=== PATIENT | female | born 1940 | race Caucasian/White ===

== ENCOUNTER 2022-09-23 21:15 | Inpatient (IN) ==
[2022-09-23] MEDS ORDERED: ONDANSETRON INJ 2 MG/ML 2 ML VIAL IV STA (23:05)
--- NOTE | 2022-09-23 23:24 | History & Physical Report ---
Date of Service September 23, 2022 Assessment & Plan (1) GI bleed: Plan: 82yo Female with PMH HTN HLD afib s/p ablation DM2 here for SOB GI bleed. GI bleed -direct admit from [facility] -received 1U blood at [place] -admit to PCU -consult placed to GI -ordered CBC CMP INR Mag -ordered type and screen, obtained blood transfution consent -ordered 2 large bore IVs -NPO -ordered protonix IV 40mg daily -consider CT A/P HTN, HLD -continue losartan, simvastatin, metoprolol -hold ASA at this time DM2 -hold home metformin -given low dose home medication, hold off insulin for now FENa: NPO Code Status: DNR intubate DVT PPX: SCDs PT/OT: ordered Dispo: PCU Edwina Tillman D.O. PGY 3, FCM (2) Anemia: (3) HTN (hypertension): (4) HLD (hyperlipidemia): (5) DM2 (diabetes mellitus, type 2): (6) S/P ablation of atrial fibrillation: Admission and Anticipated Discharge Date Admission Date: September 23, 2022 History of Present Illness Chief Complaint: GI bleed Primary Care Provider: Rina Garcia 82yo Female with PMH HTN HLD afib s/p ablation DM2 here for SOB GI bleed. Patient states on thursday she discovered bleeding bright red blood per recturm, thursday noticed SOB, both the bleeding and SOB continued to worsen over the next few days. Today patient was taking out her trash walking back home developed SOB 'felt like she couldn't breath', states she had to walk over and sit in her car for 15min, after which she recovered and went inside her house, called her control officer manager who advised her to go to the ED. She describes a slight cough and tenderness in her lower abdomen, but denies nausea vomitting or fever. Patient denies any bloody emesis. Patient went to [facility], was found to have a hbg around 7 was transfused 1U blood, flown over to [facility] for direct admission. In the room patient AAOx3, breathing well on 2L NC. Had some nausea and vomitting in the room that improved with zofran. Patient agreeable to blood consent form if needed. Patient is a former nurse. States she had an echo scheduled in the next few days. Patient manages her own medications. She denies any blood thinners, does take aspirin 81mg daily. She has a history of cholecystectomy and hysterectomy. She follows regularly with cardiology. Patient was taking aleve 220mg 1-2 tabs per night for pain with spinal stenosis, stopped taking night. She denies history of irregular colonoscopies, stopped getting colonoscopies in her 70's. Patient denies family history of GI concerns, however there is a history of muscular dystrophy in her son and daughter, both whom have passed, and her living daughter is positive for the gene. Patient believes it was inherited through their father. Discussed code status with patient. Patient states if her heart were to stop let her go peacefully. Patient agreeable to intubation if needed. Allergies Allergy/AdvReac Type Severity Reaction Status Date / Time Iodinated Contrast Media Allergy Hives Verified 09/23/22 22:50 codeine AdvReac Vomiting Verified 09/23/22 23:30 meperidine AdvReac Vomiting Verified 09/23/22 22:50 oxycodone AdvReac Vomiting Verified 09/23/22 22:50 Home Medications Medication Instructions Recorded Confirmed Type aspirin 81 mg capsule 81 mg QAM 09/23/22 09/23/22 History losartan 50 mg tablet 50 mg PO DAILY 09/23/22 09/23/22 History metformin 500 mg tablet 500 mg BID 09/23/22 09/23/22 History metoprolol succinate 50 mg 50 mg PO DAILY 09/23/22 09/23/22 History tablet,extended release 24 hr simvastatin 20 mg tablet 20 mg PO DAILY 09/23/22 09/23/22 History vitamin A-vitamin C-vit E-min 1 tab PO DAILY 09/23/22 09/23/22 History tablet Past Med/Surg History Medical History (Updated 09/24/22 @ 07:46 by Priyanka Cummins DO) Atrial fibrillation DM2 (diabetes mellitus, type 2) HLD (hyperlipidemia) HTN (hypertension) Surgical History (Updated 09/24/22 @ 07:46 by Priyanka Cummins DO) History of cholecystectomy History of hysterectomy Social History Smoking Status: Never smoker Hx Alcohol Use: No Hx Substance Use: No Preferred Language: Czech Communication Ability: Effective Hand Thermal Cutter Required: No Beliefs That Will Affect Care: None Current Living Situation: Alone Current Living Situation Comment: Home alone - Will be moving in with daughter Other Information That Helps Us Care for You: No Feels Safe at Home: Yes Safety Concerns: Feels Safe At This Time Assistive Devices: Hearing Aid - Bilateral Review of Systems Review of Systems: All systems reviewed & are unremarkable except as noted in HPI & below Physical Exam Constitutional: well developed, well nourished, cooperative and comfortable Eyes: PERRL, conjunctivae normal, anicteric sclerae ENMT: external ear and nose normal, oropharynx normal Neck: trachea midline, no thyromegaly Respiratory: normal respiratory effort, lungs clear to auscultation Cardiovascular: Rate/Rhythm: regular rate and regular rhythm Gastrointestinal (Abdomen): Inspection/Auscultation: abdomen normal to inspection Percussion/Palpation: + abdomen tender (mild, diffuse) and abdomen soft Skin: no rashes, warm and dry Results & Data Results & Data Vital Signs (Past 12 Hours) Vital Signs Temp Resp BP Pulse Ox O2 Del Method O2 Flow Rate 09/23/22 23:17 36.6 C 18 179/80 H 95 Nasal Cannula 2 Laboratory Results Laboratory Results WBC 9.78 K/ul (4.8-10.8) 09/24/22 06:53 RBC 2.76 M/uL (4.20-5.40) L 09/24/22 06:53 Hgb 8.4 g/dl (12.0-16.0) L 09/24/22 06:53 Hct 24.6 % (37.0-47.0) L 09/24/22 06:53 MCV 89.1 fL (80.0-100.0) 09/24/22 06:53 MCH 30.4 pg (25.0-34.0) 09/24/22 06:53 MCHC 34.1 g/dL (32.0-36.0) 09/24/22 06:53 RDW Std Deviation 46.7 fL (36.4-46.3) H 09/24/22 06:53 RDW Coeff of Trino 14.6 % (11.5-14.5) H 09/24/22 06:53 Plt Count 240 K/uL (130-400) 09/24/22 06:53 MPV 9.9 fL (9.4-12.4) 09/24/22 06:53 Immature Gran % (Auto) 0.5 % 09/23/22 23:54 Neut % (Auto) 74.2 % 09/23/22 23:54 Lymph % (Auto) 18.4 % 09/23/22 23:54 [place] % (Auto) 5.6 % 09/23/22 23:54 Eos % (Auto) 1.0 % 09/23/22 23:54 Baso % (Auto) 0.3 % 09/23/22 23:54 Neut # (Auto) 7.77 K/uL (1.40-6.50) H 09/23/22 23:54 Lymph # (Auto) 1.93 K/uL (1.2-3.4) 09/23/22 23:54 [place] # (Auto) 0.59 K/uL (0.11-0.59) 09/23/22 23:54 Eos # (Auto) 0.11 K/uL (0-0.50) 09/23/22 23:54 Baso # (Auto) 0.03 K/uL (0-0.2) 09/23/22 23:54 Immature Gran # (Auto) 0.05 K/uL (0.01-0.20) 09/23/22 23:54 PT 10.6 Seconds (9.0-12.0) 09/23/22 23:54 INR 1.0 (0.9-1.1) 09/23/22 23:54 Sodium 139 mmol/L (136-145) 09/23/22 23:54 Potassium 3.6 mmol/L (3.5-5.1) 09/23/22 23:54 Chloride 107 mmol/L (98-107) 09/23/22 23:54 Carbon Dioxide 22 mmol/L (21-32) 09/23/22 23:54 Anion Gap 10 (3-11) 09/23/22 23:54 BUN 20 mg/dl (6-23) 09/23/22 23:54 Creatinine 0.93 mg/dl (0.6-1.2) 09/23/22 23:54 Est Cr Clr Drug Dosing 41.1 ml/min 09/23/22 23:54 Est GFR ( Amer) 65.9 ml/min 09/23/22 23:54 Est GFR (Non-Af Amer) 56.8 ml/min 09/23/22 23:54 BUN/Creatinine Ratio 21.5 (10-20) H 09/23/22 23:54 Glucose 125 mg/dl (70-99(Fasting)) H 09/23/22 23:54 Calcium 8.9 mg/dl (8.6-10.3) 09/23/22 23:54 Magnesium 1.7 mg/dl (1.7-2.4) 09/23/22 23:54 Total Bilirubin 1.8 mg/dl (0.2-1.0) H 09/23/22 23:54 AST 12 U/L (13-39) L 09/23/22 23:54 ALT 8 U/L (7-52) 09/23/22 23:54 Alkaline Phosphatase 48 U/L (34-104) 09/23/22 23:54 Total Protein 6.4 gm/dl (6.0-8.3) 09/23/22 23:54 Albumin 3.8 gm/dl (3.4-5.0) 09/23/22 23:54 Globulin 2.6 gm/dl (2.5-4.0) 09/23/22 23:54 Albumin/Globulin Ratio 1.5 (0.9-2) 09/23/22 23:54 Blood Type O Positive 09/23/22 23:54 Antibody Screen NEGATIVE 09/23/22 23:54 Supervising Physician Co-Signing Physician Notes Patient seen and examined in room 242-2. Chart reviewed, case discussed with Dr. Tillman at the time of admission and I agree with the assessment and plan as above Resident Activity Tracking Resident Involvement: Resident Care Provided Care Provided: Adult Hospital Medicine
[2022-09-24 00:13] LABS: Basophils # (auto) 0.03 K/uL (0-0.2); Basophils % (auto) 0.3 %; Eosinophils # (auto) 0.11 K/uL (0-0.50); Hematocrit (blood only) 26.9 % (37.0-47.0); Hemoglobin 9.2 g/dl (12.0-16.0); Immature Granulocytes # (auto) 0.05 K/uL (0.01-0.20); Immature Granulocytes % (auto) 0.5 %; Lymphocytes # (auto) 1.93 K/uL (1.2-3.4); Lymphocytes % (auto) 18.4 %; Mean Corpuscular Hemoglobin 30.6 pg (25.0-34.0); Mean Corpuscular Hgb Conc 34.2 g/dL (32.0-36.0); Mean Corpuscular Volume 89.4 fL (80.0-100.0); Mean Platelet Volume 9.4 fL (9.4-12.4); Monocytes # (auto) 0.59 K/uL (0.11-0.59); Monocytes % (auto) 5.6 %; Neutrophils # (auto) 7.77 K/uL (1.40-6.50); Neutrophils % (auto) 74.2 %; Platelet Count 243 K/uL (130-400); RDW Coefficient of Variation 14.2 % (11.5-14.5); RDW Standard Deviation 46.4 fL (36.4-46.3); Red Blood Count 3.01 M/uL (4.20-5.40); White Blood Count 10.48 K/ul (4.8-10.8)
[2022-09-24] MEDS ORDERED: SODIUM CHLORIDE 0.9% 1000ML 1,000 ML IV SCH (00:15)
[2022-09-24 00:27] LABS: Albumin Globulin Ratio 1.5 (0.9-2); Albumin Level 3.8 gm/dl (3.4-5.0); BUN Creatinine Ratio 21.5 (10-20); Bilirubin,Total 1.8 mg/dl (0.2-1.0); Calcium 8.9 mg/dl (8.6-10.3); Creatinine Clr Calc Pharmacy 41.1 ml/min; Est GFR (African American) 65.9 ml/min; Est GFR (Non-African American) 56.8 ml/min; Globulin 2.6 gm/dl (2.5-4.0); Magnesium 1.7 mg/dl (1.7-2.4); Potassium 3.6 mmol/L (3.5-5.1); Total Protein 6.4 gm/dl (6.0-8.3)
[2022-09-24 00:41] LABS: Prothrombin Time 10.6 Seconds (9.0-12.0)
[2022-09-24 07:39] LABS: Hematocrit (blood only) 24.6 % (37.0-47.0); Hemoglobin 8.4 g/dl (12.0-16.0); Mean Corpuscular Hemoglobin 30.4 pg (25.0-34.0); Mean Corpuscular Hgb Conc 34.1 g/dL (32.0-36.0); Mean Corpuscular Volume 89.1 fL (80.0-100.0); Mean Platelet Volume 9.9 fL (9.4-12.4); Platelet Count 240 K/uL (130-400); RDW Coefficient of Variation 14.6 % (11.5-14.5); RDW Standard Deviation 46.7 fL (36.4-46.3); Red Blood Count 2.76 M/uL (4.20-5.40); White Blood Count 9.78 K/ul (4.8-10.8)
--- NOTE | 2022-09-24 07:48 | Billing Data ---
Date of Service September 23, 2022 Coding Level of Care Code 37137 INT INP/OBS CARE
[2022-09-24 07:57] LABS: BUN Creatinine Ratio 19.1 (10-20); Creatinine Clr Calc Pharmacy 40.5 ml/min; Est GFR (Non-African American) 56.1 ml/min; Potassium 4.3 mmol/L (3.5-5.1)
--- NOTE | 2022-09-24 09:27 | Hospitalist Progress Note ---
Date of Service September 24, 2022 Assessment & Plan (1) GI bleed: Plan: Pt is a 82 yo female with PMH of HTN, HLD, afib s/p ablation, and DM2 here for SOB secondary to acute blood loss anemia from GI bleed. GI bleed - upper vs. lower; pt endorses frequent NSAID and aspirin use at home- pt has never had colonoscopy - s/p 1 unit pRBCs from outside hospital; transfusion consent obtained - Hgb stable upon arrival at 9.2; AM repeat 8.4; noon repeat stable at 8.5- will recheck in AM - continue protonix 40 mg BID - per GI; will proceed with colonoscopy and EGD tomorrow HTN, HLD - continue losartan, simvastatin, metoprolol - continue to hold ASA in setting of GI bleed DM2 - hold home metformin - given low dose home medication, hold off insulin for now FEN: clear liquid; prep for colonoscopy tomorrow Code Status: DNR, intubation acceptable DVT ppx: SCDs PT/OT: ordered Dispo: PCU (2) Anemia: (3) HTN (hypertension): (4) HLD (hyperlipidemia): (5) DM2 (diabetes mellitus, type 2): (6) S/P ablation of atrial fibrillation: Admission and Anticipated Discharge Date Admission Date: ATTESTATION I also saw the patient and confirmed ward portions of the history and exam. I agree with the impression and plan in the resident documentation, and as summarized below. Upon our midmorning exam, the patient is resting comfortably in bed. She has no new complaints. Mixed picture, elements of both upper and lower gastrointestinal source. 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 EXAM 130/73, 68, 15, 36.4, 90% room air Alert and oriented Looks membranes pink and moist Heart regular Lungs clear with nonlabored respirations DATA Labs Most recent hemoglobin 8.5 Sodium 140, testing 4.3, BUN 18, creatinine 0.94 IMPRESSION & PLAN Gastrointestinal bleed Acute blood loss anemia Trend hemoglobin Appreciate gastroenterology consultation, plan is for panendoscopy 09/25/2022 Additional per resident documentation Subjective Pt states she started with bloody BM on Thursday 3 per day. She became lightheaded/dizzy and SOB with exertion which prompted her to present to the hospital. She has not had any further BM since coming to [place]. Review of Systems Review of Systems: As per HPI Physical Exam Physical Exam: Constitutional: pale, no acute distress HEENT: normocephalic, no conjunctival injection CV: RRR, no murmur, no LE edema Respiratory: CTA bilaterally. No rhonchi, wheezes, or crackles. No increased work of breathing GI: soft, nondistended, nontender MSK: no gross deformities noted Skin: warm, dry, no rashes Neuro: alert, oriented, no FND noted Psych: mood and affect congruent Results & Data Results & Data Vital Signs (Past 12 Hours) Vital Signs Temp Pulse Pulse Resp BP BP Pulse Ox 09/24/22 07:43 87 09/24/22 07:42 94 H 09/24/22 07:36 37.0 C 69 18 144/70 H 92 09/24/22 04:08 95 H 09/24/22 03:17 36.9 C 103 H 18 136/81 96 09/24/22 00:03 101 H 09/23/22 23:17 36.6 C 18 179/80 H 95 O2 Del Method O2 Flow Rate 09/24/22 07:43 09/24/22 07:42 09/24/22 07:36 Room Air 09/24/22 04:08 09/24/22 03:17 Room Air 09/24/22 00:03 09/23/22 23:17 Nasal Cannula 2 Resident Activity Tracking Resident Involvement: Resident Care Provided Care Provided: Adult Hospital Medicine
--- NOTE | 2022-09-24 10:02 | Gastrointestinal Consultation ---
Date of Consultation September 24, 2022 Assessment & Plan (1) GI bleed: (2) Anemia: Plan She is having dark stools as well as brbpr per rectum with symptomatic anemia over the past week. Discussed case with Dr. Joe who helped advise on plan. - discussed with patient and she is agreeable to having colonoscopy and egd to further evaluate. will plan to prep today and do these tomorrow. - continue to trend hgb/hct and transfuse as needed. - I advised her to avoid nsaid use. Supervising Physician Co-Signing Physician Notes Agree with CHRISTOPHER Wagner as above Abd: Soft, NT, ND, +BS She states she has not have any overt GI bleeding today Proceed with EGD and Colonoscopy tomorrow with Dr. Wang. History of Present Illness Reason for Consultation: GIB Requesting Physician: Edwina Raymond DO Attending Physician: Priyanka Cummins DO History of Present Illness Patient is an 82 year old female with complaints of 6 days of brbpr, shortness of breath x 5 days and notes progressive symptoms since symptoms began. Due to her symptoms she was seen at [facility] and found to have a hgb of 7 so she was transfused with 1 unit of PRBC and transferred to [facility]. On arrival here, hgb was 9.2 on 09/23. She admits to regular nsaid use of daily aleve for arthritic issues. Over the past week she has had an increase in bowel movements from her baseline with having 3 bowel movements daily that are loose, dark, and bloody. She tells me she has never had a colonoscopy or egd in the past. no blood thinners. she tells me she has had no further bleeding since admission. no bowel movements since admission. rest of GI ros unremarkable. Allergies Allergy/AdvReac Type Severity Reaction Status Date / Time Iodinated Contrast Media Allergy Hives Verified 09/23/22 22:50 codeine AdvReac Vomiting Verified 09/23/22 23:30 meperidine AdvReac Vomiting Verified 09/23/22 22:50 oxycodone AdvReac Vomiting Verified 09/23/22 22:50 Home Medications Medication Instructions Recorded Confirmed Type aspirin 81 mg capsule 81 mg QAM 09/23/22 09/23/22 History losartan 50 mg tablet 50 mg PO DAILY 09/23/22 09/23/22 History metformin 500 mg tablet 500 mg BID 09/23/22 09/23/22 History metoprolol succinate 50 mg 50 mg PO DAILY 09/23/22 09/23/22 History tablet,extended release 24 hr simvastatin 20 mg tablet 20 mg PO DAILY 09/23/22 09/23/22 History vitamin A-vitamin C-vit E-min 1 tab PO DAILY 09/23/22 09/23/22 History tablet Patient History Medical History (Updated 09/24/22 @ 07:46 by Priyanka Cummins DO) Atrial fibrillation DM2 (diabetes mellitus, type 2) HLD (hyperlipidemia) HTN (hypertension) Surgical History (Updated 09/24/22 @ 07:46 by Priyanka Cummins DO) History of cholecystectomy History of hysterectomy Social History Smoking Status: Never smoker Hx Alcohol Use: No Hx Substance Use: No Preferred Language: Wolof Communication Ability: Effective Packing Machine Tender Required: No Beliefs That Will Affect Care: None Current Living Situation: Alone Current Living Situation Comment: Home alone - Will be moving in with daughter Other Information That Helps Us Care for You: No Feels Safe at Home: Yes Safety Concerns: Feels Safe At This Time Assistive Devices: Cane and Walker Review of Systems Review of Systems: All systems reviewed & are unremarkable except as noted in HPI & below Physical Exam Constitutional: WD/WN, vitals as above Respiratory: normal respiratory effort, lungs clear to auscultation Cardiovascular: RRR, no murmur, no edema Gastrointestinal (Abdomen): normal bowel sounds, soft, nontender, no hepatosplenomegaly Skin: no rashes, warm and dry Psychiatric: Orientation: alert and oriented x 3 Affect: euthymic affect Results & Data Vital Signs (Past 12 Hours) Vital Signs Temp Pulse Pulse Resp BP BP Pulse Ox 09/24/22 07:43 87 09/24/22 07:42 94 H 09/24/22 07:36 98.6 F 69 18 144/70 H 92 09/24/22 04:08 95 H 09/24/22 03:17 98.4 F 103 H 18 136/81 96 09/24/22 00:03 101 H 09/23/22 23:17 97.9 F 18 179/80 H 95 O2 Del Method O2 Flow Rate 09/24/22 07:43 09/24/22 07:42 09/24/22 07:36 Room Air 09/24/22 04:08 09/24/22 03:17 Room Air 09/24/22 00:03 09/23/22 23:17 Nasal Cannula 2 PG Care Time/CCT Total # of Minutes Spent Total Time Spent with Patient: Total time spent is greater than 50% in coordination of care (as documented) at patient's floor/unit and/or counseling patient: Coding Level of Care Code 77508 INT INP/OBS CARE 1/40MIN Diagnoses GI bleed K92.2 Anemia D64.9 Time Spent (min) 42
[2022-09-24] MEDS ORDERED: PANTOprazole 40 MG in SYRINGE 0 ML IV SCH (11:00)
[2022-09-24 12:30] LABS: Hematocrit (blood only) 24.9 % (37.0-47.0); Hemoglobin 8.5 g/dl (12.0-16.0)
[2022-09-24] MEDS: PANTOprazole 40 MG in SYRINGE 0 ML IV SCH ×2 (14:36→20:13)
[2022-09-24] MEDS: LOSARTAN POTASSIUM 50 MG TAB PO SCH (15:14)
[2022-09-24] MEDS: SIMVASTATIN 20 MG TAB PO SCH (15:15)
[2022-09-24] MEDS: METOPROLOL SUCC 50MG EXT REL TAB PO SCH (15:15)
[2022-09-24] MEDS: LAVAGE SOLUTION 4000ML PO SCH (16:41)
[2022-09-24] MEDS: SULFAMETHOXAZOLE/TRIMETHOPRIM DS 800/160MG TAB PO SCH (20:06)
[2022-09-25] MEDS: LAVAGE SOLUTION 4000ML PO SCH (00:11)
--- NOTE | 2022-09-25 06:44 | Hospitalist Progress Note ---
Date of Service September 25, 2022 Assessment & Plan (1) GI bleed: Plan: Pt is a 82 yo female with PMH of HTN, HLD, afib s/p ablation, and DM2 here for SOB secondary to acute blood loss anemia from GI bleed. GI bleed - upper vs. lower; pt endorses frequent NSAID and aspirin use at home- pt has never had colonoscopy - s/p 1 unit pRBCs from outside hospital; transfusion consent obtained - Hgb stable upon arrival at 9.2; no further bleeding; this AM 7.9- recheck tomorrow AM - EGD showed erosive gastropathy w/o signs of bleeding - colonoscopy revealed large polyp of ascending colon w/o evidence of current bleeding, in addition to small, non-bleeding hemorrhoids - per GI; continue protonix 40 mg daily, outpatient referral to Dr. Bowers for resection of above polyp Skin abscess of left buttock - improving since yesterday, still draining purulent material but decreasing in size - continue bactrim BID - will consider surgical consult for I&D tomorrow if no improvement/worsening HTN, HLD - continue losartan, simvastatin, metoprolol - continue to hold ASA in setting of GI bleed DM2 - hold home metformin - given low dose home medication, hold off insulin for now FEN: carb consistent Code Status: DNR, intubation acceptable DVT ppx: SCDs PT/OT: ordered Dispo: PCU (2) Anemia: (3) HTN (hypertension): (4) HLD (hyperlipidemia): (5) DM2 (diabetes mellitus, type 2): (6) S/P ablation of atrial fibrillation: (7) Abscess: Admission and Anticipated Discharge Date Admission Date: September 23, 2022 Supervising Physician Co-Signing Physician Notes ATTESTATION I also saw the patient and confirmed ward portions of the history and exam. I agree with the impression and plan in the resident documentation, and as summarized below. Upon our afternoon exam, the patient was returned to her bed post EGD and colonoscopy. Her daughter is at bedside. She was eating a sandwich without difficulty. She had no new complaints. EXAM 110/64, 74, 16, 37 C, 97% room air Alert and oriented Looks membranes pink and moist Heart regular Lungs clear with nonlabored respirations DATA Labs Hemoglobin 7.9 Sodium 142, potassium 4.1, BUN 10, creatinine 0.9 Micro Wound culture from the left buttocks shows staph, sensitivities to follow IMPRESSION & PLAN Gastrointestinal bleed Acute blood loss anemia EGD demonstrated normal esophagus, erosive gastropathy with no bleeding or signs of recent bleeding. Colonoscopy revealed 1 large polyp in the ascending colon which was tattooed; none bleeding internal hemorrhoids. Unsure if we have found a cause of her bleeding, although we do not know what her baseline hemoglobin is (slow bleed from polyp + acute hemorrhoidal bleeding). That being said, the patient reports passage of several dark blood clots in addition to bright red blood which would not be entirely consistent with hemorrhoidal bleeding. Continue to monitor hemoglobin We will discuss with gastroenterology timing of polyp resection Continue to hold aspirin/NSAIDs Continue Protonix twice daily Skin abscess, left buttock Improving with Bactrim Reexamine in the morning; will likely need surgical consult/I&D tomorrow if not continuing to improve or if worsens Additional per resident documentation Subjective Pt seen before her colonoscopy/EGD this morning. No further bleeding. She states her bottom (near her abscess) feels better. Review of Systems Review of Systems: As per HPI Physical Exam Physical Exam: Constitutional: well appearing, pale, no acute distress HEENT: normocephalic, no conjunctival injection CV: RRR, no murmur, no LE edema Respiratory: CTA bilaterally. No rhonchi, wheezes, or crackles. No increased work of breathing MSK: no gross deformities noted Skin: warm, dry. ~3cm round erythematous and indurated abscess noted of left buttock. ~0.5 cm open area draining purulent material. Improved from yesterday. Neuro: alert, oriented, no FND noted Psych: mood and affect congruent Results & Data Results & Data Vital Signs (Past 12 Hours) Vital Signs Temp Pulse Pulse Resp BP Pulse Ox O2 Del Method 09/25/22 03:20 36.4 C L 66 18 130/82 95 Room Air 09/24/22 22:31 68 09/24/22 22:54 36.5 C 67 18 147/83 H 96 Room Air 09/24/22 19:29 36.3 C L 68 18 138/84 98 Room Air Resident Activity Tracking Resident Involvement: Resident Care Provided Care Provided: Adult Hospital Medicine
[2022-09-25 07:03] LABS: Hematocrit (blood only) 22.9 % (37.0-47.0); Hemoglobin 7.9 g/dl (12.0-16.0); Mean Corpuscular Hemoglobin 30.5 pg (25.0-34.0); Mean Corpuscular Hgb Conc 34.5 g/dL (32.0-36.0); Mean Corpuscular Volume 88.4 fL (80.0-100.0); Mean Platelet Volume 9.9 fL (9.4-12.4); Platelet Count 248 K/uL (130-400); RDW Standard Deviation 47.9 fL (36.4-46.3); Red Blood Count 2.59 M/uL (4.20-5.40); White Blood Count 7.74 K/ul (4.8-10.8)
[2022-09-25 07:23] LABS: BUN Creatinine Ratio 11.1 (10-20); Creatinine Clr Calc Pharmacy 42.8 ml/min; Est GFR (African American) 68.5 ml/min; Est GFR (Non-African American) 59.1 ml/min; Potassium 4.1 mmol/L (3.5-5.1)
--- NOTE | 2022-09-25 08:12 | Anesthesiology Consultation ---
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 Felipe Wang MD Height/Weight Height: 5 ft 1 in Weight: 71.3 kg Allergies Allergy/AdvReac Type Severity Reaction Status Date / Time Iodinated Contrast Media Allergy Hives Verified 09/23/22 22:50 codeine AdvReac Vomiting Verified 09/23/22 23:30 meperidine AdvReac Vomiting Verified 09/23/22 22:50 oxycodone AdvReac Vomiting Verified 09/23/22 22:50 Medications Home Medications Medication Instructions Recorded Confirmed Last Taken aspirin 81 mg capsule 81 mg QAM 09/23/22 09/23/22 Unknown losartan 50 mg tablet 50 mg PO DAILY 09/23/22 09/23/22 Unknown metformin 500 mg tablet 500 mg BID 09/23/22 09/23/22 Unknown metoprolol succinate 50 mg 50 mg PO DAILY 09/23/22 09/23/22 Unknown tablet,extended release 24 hr simvastatin 20 mg tablet 20 mg PO DAILY 09/23/22 09/23/22 Unknown vitamin A-vitamin C-vit E-min 1 tab PO DAILY 09/23/22 09/23/22 Unknown tablet Active Medications Generic Name Dose Route Start Last Admin Trade Name César PRN Reason Stop Dose Admin Pantoprazole Sodium 40 mg/ 10 mls @ 5 mls/min 09/24/22 12:00 09/24/22 20:13 Syringe IV 10/24/22 11:59 5 mls/min BID SULMA Administration Losartan Potassium 50 mg 09/24/22 09:00 09/24/22 15:14 Losartan Potassium 50 Mg Tab PO 10/24/22 08:59 50 mg DAILY SULMA Administration Metoprolol Succinate 50 mg 09/24/22 09:00 09/24/22 15:15 Metoprolol Succ 50mg Ext Rel Tab PO 10/24/22 08:59 50 mg DAILY SULMA Administration Simvastatin 20 mg 09/24/22 09:00 09/24/22 15:15 Simvastatin 20 Mg Tab PO 10/24/22 08:59 20 mg DAILY SULMA Administration Trimethoprim/Sulfamethoxazole 1 tab 09/24/22 21:00 09/24/22 20:06 Sulfamethoxazole/Trimethoprim Ds 800/160mg Tab PO 10/01/22 20:59 1 tab Q12 SULMA Administration Past Medical History Medical History Atrial fibrillation DM2 (diabetes mellitus, type 2) HLD (hyperlipidemia) HTN (hypertension) Past Surgical History Surgical History History of cholecystectomy History of hysterectomy Social History Smoking Status: Never smoker Hx Alcohol Use: No Hx Substance Use: No Physical Exam Vital Signs Last Vital Signs Temp 97.5 F L 09/25/22 03:20 Pulse 66 09/25/22 03:20 Resp 18 09/25/22 03:20 BP 130/82 09/25/22 03:20 Pulse Ox 95 09/25/22 03:20 O2 Del Method Room Air 09/25/22 03:20 O2 Flow Rate 2 09/23/22 23:17 Testing Laboratory Results 09/25/22 05:33 09/25/22 05:33 PT 10.6 Seconds (9.0-12.0) 09/23/22 23:54 INR 1.0 (0.9-1.1) 09/23/22 23:54 Blood Type O Positive 09/23/22 23:54 Antibody Screen NEGATIVE 09/23/22 23:54
--- NOTE | 2022-09-25 08:39 | History & Physical Bridge Note ---
Date of Service September 25, 2022 History & Physical Bridge Note I have examined the patient, reviewed the History & Physical and in the interval since the performance of the History & Physical I have noted the following changes of clinical significance: no changes noted Proceed with EGD. proceed with colonoscopy. risks/benefits and procedure discussed with patient, who agrees to proceed
[2022-09-25] MEDS: LOSARTAN POTASSIUM 50 MG TAB PO SCH (09:33)
[2022-09-25] MEDS: SULFAMETHOXAZOLE/TRIMETHOPRIM DS 800/160MG TAB PO SCH ×2 (09:34→20:28)
[2022-09-25] MEDS: SIMVASTATIN 20 MG TAB PO SCH (09:34)
[2022-09-25] MEDS: METOPROLOL SUCC 50MG EXT REL TAB PO SCH (09:34)
[2022-09-25] MEDS: PANTOprazole 40 MG in SYRINGE 0 ML IV SCH (09:34)
[2022-09-25] MEDS ORDERED: LIDOCAINE 2% 2 ML VIAL/AMP(20MG/ML) INFIL ONE (11:11)
[2022-09-25] MEDS ORDERED: PROPOFOL IV EMULSION 10 MG/ML 20 ML VIAL IV ONE (11:11)
[2022-09-25] MEDS ORDERED: ONDANSETRON INJ 2 MG/ML 2 ML VIAL ONE (11:12)
[2022-09-25] MEDS ORDERED: ENDOSCOPIC MARKER 5 ML SYR TOP ONE (12:35)
[2022-09-25] MEDS ORDERED: ePHEDrine sulfate 50 MG/ML SYR ONE (12:36)
--- NOTE | 2022-09-25 12:55 | GI REPORT ---
Patient Name: Pat Louise Procedure Date: 09/25/2022 11:18 AM Date of : 1940 Admit Type: Inpatient Age: 82 Gender: Female Attending MD: Tod Wang MD, Procedure: Upper GI endoscopy Providers: Tod Wang MD Referring MD: Priyanka Cummins Do Indications: Recent gastrointestinal bleeding Medicines: Monitored Anesthesia Care Complications: No immediate complications. Estimated blood loss: None. Estimated Blood Loss: Estimated blood loss: none. Procedure: Pre-Anesthesia Assessment: - Prior Anticoagulants: The patient has taken no anticoagulant or antiplatelet agents. - ASA Grade Assessment: III - A patient with severe systemic disease. After obtaining informed consent, the endoscope was passed under direct vision. Throughout the procedure, the patient's blood pressure, pulse, and oxygen saturations were monitored continuously. The Endoscope was introduced through the mouth, and advanced to the second part of duodenum. The upper GI endoscopy was accomplished without difficulty. The patient tolerated the procedure well. Findings: The examined esophagus was normal. Multiple dispersed small erosions with no bleeding and no stigmata of recent bleeding were found in the gastric antrum. Biopsies were taken with a cold forceps for Helicobacter pylori testing. Estimated blood loss: none. The duodenal bulb and second portion of the duodenum were normal. Impression: - Normal esophagus. - Erosive gastropathy with no bleeding and no stigmata of recent bleeding. Biopsied. - Normal duodenal bulb and second portion of the duodenum. Recommendation: - [facility] care. - Advance diet as tolerated today. - Await pathology results. -protonix 40 mg daily Tod Wang MD 09/25/2022 12:55:30 PM This report has been signed electronically. Note Initiated On: 09/25/2022 11:18 AM Number of Addenda: 0 I attest to the content of the Intraoperative Record and orders documented therein, exceptions below {[id number]}
--- NOTE | 2022-09-25 12:58 | GI REPORT ---
Patient Name: Pat Louise Procedure Date: 09/25/2022 11:19 AM Date of : 1940 Admit Type: Inpatient Age: 82 Gender: Female Attending MD: Tod Wang MD, Procedure: Colonoscopy Providers: Tod Wang MD Referring MD: Priyanka Cummins Do Indications: Gastrointestinal bleeding Medicines: Monitored Anesthesia Care Complications: No immediate complications. Estimated blood loss: None. Estimated Blood Loss: Estimated blood loss: none. Procedure: Pre-Anesthesia Assessment: - Prior Anticoagulants: The patient has taken no anticoagulant or antiplatelet agents. - ASA Grade Assessment: III - A patient with severe systemic disease. After I obtained informed consent, the scope was passed under direct vision. Throughout the procedure, the patient's blood pressure, pulse, and oxygen saturations were monitored continuously. The Colonoscope was introduced through the anus and advanced to the cecum, identified by appendiceal orifice and ileocecal valve. The colonoscopy was performed without difficulty. The patient tolerated the procedure well. The quality of the bowel preparation was adequate to identify polyps greater than 5 mm in size. Findings: A large polyp was found in the ascending colon roughly 7 cm distal to the IC valve. The polyp was carpet-like. Area was tattooed with an injection of 5 mL of Lexi ink. Non-bleeding internal hemorrhoids were found. The hemorrhoids were small. no evidence of blood throughout entire exam. Impression: - One large polyp in the ascending colon. Tattooed. - Non-bleeding internal hemorrhoids. - No specimens collected. Recommendation: - [facility] to [facility] for [facility] care. - Advance diet as tolerated today. -refer to Dr. Bowers for advanced resection of ascending colon polyp. Tod Wang MD 09/25/2022 12:58:40 PM This report has been signed electronically. Note Initiated On: 09/25/2022 11:19 AM Number of Addenda: 0 I attest to the content of the Intraoperative Record and orders documented therein, exceptions below {[id number]}
--- NOTE | 2022-09-25 13:06 | Anesthesiology Progress Note ---
Date of Service September 25, 2022 Anesthesia Post Procedure Vital Signs Vital Signs: Temp Pulse Pulse Resp BP Pulse Ox O2 Del Method 09/25/22 12:51 76 14 129/60 99 Oxymask 09/25/22 10:55 97.7 F 68 16 175/85 H 95 Room Air 09/25/22 08:21 98.2 F 73 16 169/67 H 98 Room Air 09/25/22 03:20 97.5 F L 66 18 130/82 95 Room Air 09/24/22 22:31 68 09/24/22 22:54 97.7 F 67 18 147/83 H 96 Room Air 09/24/22 19:29 97.3 F L 68 18 138/84 98 Room Air 09/24/22 14:01 75 09/24/22 16:16 98.1 F 68 20 127/75 94 Room Air O2 Flow Rate 09/25/22 12:51 4 09/25/22 10:55 09/25/22 08:21 09/25/22 03:20 09/24/22 22:31 09/24/22 22:54 09/24/22 19:29 09/24/22 14:01 09/24/22 16:16 Transfer of Care Handoff Completed per policy Notes Mental Status: alert / awake / arousable and participated in evaluation Patient Amnestic to Procedure: Yes Nausea / Vomiting: adequately controlled Pain: adequately controlled Airway Patency, RR, SpO2: stable & adequate BP & HR: stable & adequate Hydration State: stable & adequate Anesthetic Complications: no major complications apparent and Pt Satisfied with anesthetic care
[2022-09-26 07:01] LABS: Hematocrit (blood only) 22.6 % (37.0-47.0); Hemoglobin 7.6 g/dl (12.0-16.0); Mean Corpuscular Hemoglobin 30.5 pg (25.0-34.0); Mean Corpuscular Hgb Conc 33.6 g/dL (32.0-36.0); Mean Corpuscular Volume 90.8 fL (80.0-100.0); Mean Platelet Volume 9.5 fL (9.4-12.4); Platelet Count 240 K/uL (130-400); RDW Coefficient of Variation 14.8 % (11.5-14.5); RDW Standard Deviation 48.7 fL (36.4-46.3); Red Blood Count 2.49 M/uL (4.20-5.40); White Blood Count 11.59 K/ul (4.8-10.8)
[2022-09-26 07:11] LABS: Calcium 8.1 mg/dl (8.6-10.3); Creatinine Clr Calc Pharmacy 32.9 ml/min; Est GFR (African American) 49.4 ml/min; Est GFR (Non-African American) 42.6 ml/min; Potassium 4.5 mmol/L (3.5-5.1)
[2022-09-26] MEDS: SULFAMETHOXAZOLE/TRIMETHOPRIM DS 800/160MG TAB PO SCH (08:39)
[2022-09-26] MEDS: METOPROLOL SUCC 50MG EXT REL TAB PO SCH (08:39)
[2022-09-26] MEDS: SIMVASTATIN 20 MG TAB PO SCH (08:39)
[2022-09-26] MEDS: LOSARTAN POTASSIUM 50 MG TAB PO SCH (08:39)
[2022-09-26] MEDS: PANTOprazole 40 MG in SYRINGE 0 ML IV SCH (08:39)
[2022-09-26] MEDS: cephALEXin 500 MG CAP PO SCH ×3 (12:27→21:10)
--- NOTE | 2022-09-26 13:50 | Hospitalist Progress Note ---
Date of Service September 26, 2022 Assessment & Plan (1) GI bleed: Plan: Pt is a 82 yo female with PMH of HTN, HLD, afib s/p ablation, and DM2 here for SOB secondary to acute blood loss anemia from GI bleed. GI bleed - upper vs. lower; pt endorses frequent NSAID and aspirin use at home- pt has never had colonoscopy - s/p 1 unit pRBCs from outside hospital; transfusion consent obtained - Hgb stable upon arrival at 9.2; no further bleeding; this AM 7.9, recheck 7.5, recheck pending for 8 PM - EGD showed erosive gastropathy w/o signs of bleeding - colonoscopy revealed large polyp of ascending colon w/o evidence of current bleeding, in addition to small, non-bleeding hemorrhoids - per GI; continue protonix 40 mg daily, outpatient referral to Dr. Bowers for resection of above polyp Skin abscess of left buttock - improving since yesterday, still draining purulent material but again decreasing in size - d/c bactrim d/t MSSA on wound culture; start cephalexin 500 mg QID HTN, HLD - continue losartan, simvastatin, metoprolol - continue to hold ASA in setting of GI bleed DM2 - hold home metformin - given low dose home medication, hold off insulin for now FEN: carb consistent Code Status: DNR, intubation acceptable DVT ppx: SCDs PT/OT: ordered Dispo: PCU (2) Anemia: (3) HTN (hypertension): (4) HLD (hyperlipidemia): (5) DM2 (diabetes mellitus, type 2): (6) S/P ablation of atrial fibrillation: (7) Abscess: Admission and Anticipated Discharge Date Admission Date: September 23, 2022 Supervising Physician Co-Signing Physician Notes I personally examined the patient and verified all ward points of history and exam, discussed case, and agree with decision making and plan documented by Dr. Osullivan. Patient's hemoglobin continues to slowly drop, unclear etiology of bleeding, denies dark stools or other areas of bleeding at present. Patient will require advanced resection of ascending colon polyp identified on colonoscopy yesterday, also erosive gastropathy on EGD. Patient had some tenderness in the right lower quadrant on exam today, no rebound, will evaluate with an ultrasound and proceed to CT scan if unrevealing and pain persists. Last hemoglobin 7.5, will recheck this evening and monitor closely. Subjective Pt states she feels well this morning. No further bleeding. Her abscess is less painful. Review of Systems Review of Systems: As per HPI Physical Exam Physical Exam: Constitutional: well appearing, no acute distress HEENT: normocephalic, no conjunctival injection CV: RRR, no murmur, no LE edema Respiratory: CTA bilaterally. No rhonchi, wheezes, or crackles. No increased work of breathing MSK: no gross deformities noted Skin: warm, dry, erythematous/indurated region of left buttock decreased in size from yesterday (~1.5 cm to 2 cm). Still draining bloody/purulent fluid. Neuro: alert, oriented, no FND noted Psych: mood and affect congruent Results & Data Results & Data Vital Signs (Past 12 Hours) Vital Signs Temp Pulse Resp BP Pulse Ox O2 Del Method 09/26/22 11:52 36.9 C 56 L 18 146/81 H 95 Room Air 09/26/22 08:00 Room Air 09/26/22 07:43 36.8 C 91 H 18 119/73 96 Room Air 09/26/22 03:45 37.1 C 90 17 130/74 91 Room Air Resident Activity Tracking Resident Involvement: Resident Care Provided Care Provided: Adult Hospital Medicine
[2022-09-26 14:22] LABS: Hematocrit (blood only) 21.9 % (37.0-47.0); Hemoglobin 7.5 g/dl (12.0-16.0)
[2022-09-26 20:49] LABS: Hemoglobin 7.9 g/dl (12.0-16.0)
[2022-09-26] MEDS: ACETAMINOPHEN 325 MG TAB PO PRN (21:10)
[2022-09-27 07:08] LABS: Hematocrit (blood only) 23.2 % (37.0-47.0); Hemoglobin 7.7 g/dl (12.0-16.0); Mean Corpuscular Hemoglobin 30.2 pg (25.0-34.0); Mean Corpuscular Hgb Conc 33.2 g/dL (32.0-36.0); Mean Platelet Volume 9.6 fL (9.4-12.4); Platelet Count 251 K/uL (130-400); RDW Coefficient of Variation 14.6 % (11.5-14.5); RDW Standard Deviation 47.8 fL (36.4-46.3); Red Blood Count 2.55 M/uL (4.20-5.40)
--- NOTE | 2022-09-27 07:10 | Hospitalist Progress Note ---
Date of Service September 27, 2022 Assessment & Plan (1) GI bleed: Plan: Pt is a 82 yo female with PMH of HTN, HLD, afib s/p ablation, and DM2 here for SOB secondary to acute blood loss anemia from GI bleed. GI bleed - upper vs. lower; pt endorses frequent NSAID and aspirin use at home- pt has never had colonoscopy - s/p 1 unit pRBCs from outside hospital; transfusion consent obtained - Hgb stable upon arrival at 9.2; no further bleeding; the patient is reporting some black stool. Hemoglobin has been staying relatively stable. Between 7.57.9 since 09/25 AM. - EGD showed erosive gastropathy w/o signs of bleeding - colonoscopy revealed large polyp of ascending colon w/o evidence of current bleeding, in addition to small, non-bleeding hemorrhoids - per GI; continue protonix 40 mg daily, outpatient referral to Dr. Bowers for resection of above polyp - Iron studies ordered on 09/27 showed low iron, low TIBC, low transferrin percentage, and a normal ferritin. Most likely representing acute phase reactants. May represent anemia of chronic disease. We will start on iron supplements daily. - Given patient's continue right upper quadrant abdominal pain, CT abdomen pelvis without contrast was ordered. Showed left side nephrolithiasis without ureteral stones or hydronephrosis. Diverticulosis without diverticulitis and no signs of obstruction or bowel wall thickening. -We will continue to monitor throughout the day in the morning, if hemoglobin remains stable then patient can be discharged home. Skin abscess of left buttock - improving since yesterday, still draining purulent material but again decreasing in size - d/c bactrim d/t MSSA on wound culture; start cephalexin 500 mg QID. Last dose will be on 10/01. HTN, HLD - continue losartan, simvastatin, metoprolol - continue to hold ASA in setting of GI bleed DM2 - hold home metformin - given low dose home medication, hold off insulin for now FEN: carb consistent Code Status: DNR, intubation acceptable DVT ppx: SCDs PT/OT: ordered Dispo: PCU (2) Anemia: (3) HTN (hypertension): (4) HLD (hyperlipidemia): (5) DM2 (diabetes mellitus, type 2): (6) S/P ablation of atrial fibrillation: (7) Abscess: Admission and Anticipated Discharge Date Admission Date: September 23, 2022 Supervising Physician Co-Signing Physician Notes I personally examined the patient and verified all ward points of history and exam, discussed case, and agree with decision making and plan documented by Dr. Silva. Improvement of hemoglobin and overall symptoms. No acute abnormalities on CT imaging today. Patient continues with clinical improvement. Subjective Patient was seen bedside this morning. She states that she is feeling well. She still complains of right lower quadrant pain especially to touch. States that she had a bowel movement yesterday which was dark brown/black. She denies any fevers, chills, abdominal pain, nausea, vomiting. Review of Systems Review of Systems: All systems reviewed & are unremarkable except as noted in Subjective Physical Exam Physical Exam: Constitutional: well-appearing, no acute distress HEENT: NCAT, no conjunctival injection CV: regular rhythm, no murmur appreciated, extremities well-perfused, no LE edema Resp: CTABL, no wheezes/rales/rhonchi appreciated, no increased work of breathing GI: soft, nondistended, right lower quadrant tenderness, BS normoactive MSK: no gross deformities appreciated Skin: warm, dry, no rash appreciated Neuro: alert, oriented, no focal neurologic deficit appreciated Results & Data Results & Data Vital Signs (Past 12 Hours) Vital Signs Temp Pulse Pulse Resp BP Pulse Ox O2 Del Method 09/27/22 06:52 36.4 C L 80 18 136/81 96 Room Air 09/27/22 03:25 36.5 C 68 22 121/73 97 Room Air 09/26/22 23:38 76 09/26/22 22:43 36.9 C 78 20 93/56 L 94 Room Air 09/26/22 19:30 Room Air Resident Activity Tracking Resident Involvement: Resident Care Provided Care Provided: Adult Hospital Medicine
[2022-09-27 07:18] LABS: Calcium 8.5 mg/dl (8.6-10.3); Creatinine Clr Calc Pharmacy 35.3 ml/min; Est GFR (African American) 53.8 ml/min; Est GFR (Non-African American) 46.4 ml/min; Potassium 4.1 mmol/L (3.5-5.1)
[2022-09-27 07:38] LABS: Ferritin 39.6 ng/ml (8-388)
[2022-09-27] MEDS: PANTOprazole 40 MG in SYRINGE 0 ML IV SCH (08:01)
[2022-09-27] MEDS: METOPROLOL SUCC 50MG EXT REL TAB PO SCH (08:01)
[2022-09-27] MEDS: SIMVASTATIN 20 MG TAB PO SCH (08:01)
[2022-09-27] MEDS: LOSARTAN POTASSIUM 50 MG TAB PO SCH (08:02)
[2022-09-27] MEDS: cephALEXin 500 MG CAP PO SCH ×4 (08:02→20:02)
[2022-09-27] MEDS: ACETAMINOPHEN 325 MG TAB PO PRN ×2 (08:02→20:02)
--- NOTE | 2022-09-27 10:41 | CT Scan Report ---
ABDOMEN AND PELVIS CT WITHOUT CONTRAST CT DOSE: 894.64 mGy.cm HISTORY: RLQ abdominal pain, h/o appendectomy TECHNIQUE: Multiaxial CT images of the abdomen and pelvis were performed without contrast. A dose lo wering technique was utilized adhering to the principles of ALARA. COMPARISON STUDY: None. FINDINGS: The lung bases are clear. No pneumoperitoneum. No pneumatosis. 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 Degenerative changes within the lumbar spine. No acute fractures. Chronic atrophy o f the right iliopsoas muscle. Cholecystectomy. The unenhanced liver, spleen, adrenal glands, and panc reas are unremarkable. No hydronephrosis. There is a 2.7 cm left renal hypodense lesion. This favors a cyst. There is a 4 mm stone within the left kidney. The distal ureters are obscured by the metallic artifact from the hip arthroplasties. However, no definite ureteral stones or hydronephrosis. Calcif ied plaque within the ectatic abdominal aorta measuring up to 2.6 cm in diameter. No retroperitoneal or pelvic lymphadenopathy. No pelvic free fluid. Prior hysterectomy. The majority of the bladder is o bscured by the metallic artifact. No definite bladder wall thickening. Suboptimal evaluation for cristiano l pathology due to the lack of intravenous and oral contrast. However, there is no definite bowel wal l thickening or obstruction. Colonic diverticulosis. No evidence for acute diverticulitis. Moderate f ecal retention. IMPRESSION: 1. Left-sided nephrolithiasis. No ureteral stones or hydronephrosis identified. 2. No definite bowel wall thickening or obstruction. 3. Colonic diverticulosis. No evidence for acute diverticulitis. 4. Additional findings as described above. ACT 112: Negative or not required by law. Electronically signed by: Petros Schulz M.D. 09/27/2022 10:39 AM
[2022-09-27] MEDS ORDERED: FERROUS SULFATE 325 MG TAB PO ONE (13:45)
[2022-09-27 17:42] LABS: Hematocrit (blood only) 26.1 % (37.0-47.0); Hemoglobin 8.7 g/dl (12.0-16.0)
--- NOTE | 2022-09-28 06:48 | Discharge Summary ---
Date of Service September 28, 2022 Admission HPI Per Admitting Provider 82yo Female with PMH HTN HLD afib s/p ablation DM2 here for SOB GI bleed. Patient states on thursday she discovered bleeding bright red blood per recturm, thursday noticed SOB, both the bleeding and SOB continued to worsen over the next few days. Today patient was taking out her trash walking back home developed SOB 'felt like she couldn't breath', states she had to walk over and sit in her car for 15min, after which she recovered and went inside her house, called her blood bank laboratory technologist who advised her to go to the ED. She describes a slight cough and tenderness in her lower abdomen, but denies nausea vomitting or fever. Patient denies any bloody emesis. Patient went to [facility], was found to have a hbg around 7 was transfused 1U blood, flown over to [facility] for direct admission. In the room patient AAOx3, breathing well on 2L NC. Had some nausea and vomitting in the room that improved with zofran. Patient agreeable to blood consent form if needed. Patient is a former nurse. States she had an echo scheduled in the next few days. Patient manages her own medications. She denies any blood thinners, does take aspirin 81mg daily. She has a history of cholecystectomy and hysterectomy. She follows regularly with cardiology. Patient was taking aleve 220mg 1-2 tabs per night for pain with spinal stenosis, stopped taking night. She denies history of irregular colonoscopies, stopped getting colonoscopies in her 70's. Patient denies family history of GI concerns, however there is a history of muscular dystrophy in her son and daughter, both whom have passed, and her living daughter is positive for the gene. Patient believes it was inherited through their father. Discussed code status with patient. Patient states if her heart were to stop let her go peacefully. Patient agreeable to intubation if needed. Admission Exam Per Admitting Provider Constitutional: well developed, well nourished, cooperative and comfortable Eyes: PERRL, conjunctivae normal, anicteric sclerae ENMT: external ear and nose normal, oropharynx normal Neck: trachea midline, no thyromegaly Respiratory: normal respiratory effort, lungs clear to auscultation Cardiovascular: Rate/Rhythm: regular rate and regular rhythm Gastrointestinal (Abdomen): Inspection/Auscultation: abdomen normal to inspection Percussion/Palpation: + abdomen tender (mild, diffuse) and abdomen soft Skin: no rashes, warm and dry Principal Diagnosis GI bleed Discharge Exam Constitutional: well-appearing, no acute distress HEENT: NCAT, no conjunctival injection CV: regular rhythm, no murmur appreciated, extremities well-perfused, no LE edema Resp: CTABL, no wheezes/rales/rhonchi appreciated, no increased work of breathing GI: soft, nondistended, nontender, BS normoactive MSK: no gross deformities appreciated Skin: warm, dry, no rash appreciated Neuro: alert, oriented, no focal neurologic deficit appreciated Discharge Data Allergies Allergy/AdvReac Type Severity Reaction Status Date / Time Iodinated Contrast Media Allergy Hives Verified 09/23/22 22:50 codeine AdvReac Vomiting Verified 09/23/22 23:30 meperidine AdvReac Vomiting Verified 09/23/22 22:50 oxycodone AdvReac Vomiting Verified 09/23/22 22:50 Consultations 09/23/22 23:17 Consult Gastroenterology Routine Procedures Performed Operation Date: 09/25/22 17:00 Actual Procedures s EGD Biopsy Cytology(Not Applicable) - Tod Wang MD p Colonoscopy(Not Applicable) - Tod Wang MD Ordered Studies Abdomen/Pelvis CT 09/27/22 09:[address] WITHOUT CONTRAST CT DOSE: 894.64 mGy.cm HISTORY: RLQ abdominal pain, h/o appendectomy TECHNIQUE: Multiaxial CT images of the abdomen and pelvis were performed without contrast. A dose lowering technique was utilized adhering to the principles of ALARA. COMPARISON STUDY: None. FINDINGS: The lung bases are clear. No pneumoperitoneum. No pneumatosis. Bilateral total hip arthroplasties are noted. Degenerative changes within the lumbar spine. No acute fractures. Chronic atrophy of the right iliopsoas muscle. Cholecystectomy. The unenhanced liver, spleen, adrenal glands, and pancreas are unremarkable. No hydronephrosis. There is a 2.7 cm left renal hypodense lesion. This favors a cyst. There is a 4 mm stone within the left kidney. The distal ureters are obscured by the metallic artifact from the hip arthroplasties. However, no definite ureteral stones or hydronephrosis. Calcified plaque within the ectatic abdominal aorta measuring up to 2.6 cm in diameter. No retroperitoneal or pelvic lymphadenopathy. No pelvic free fluid. Prior hysterectomy. The majority of the bladder is obscured by the metallic artifact. No definite bladder wall thickening. Suboptimal evaluation for bowel pathology due to the lack of intravenous and oral contrast. However, there is no definite bowel wall thickening or obstruction. Colonic diverticulosis. No evidence for acute diverticulitis. Moderate fecal retention. IMPRESSION: 1. Left-sided nephrolithiasis. No ureteral stones or hydronephrosis identified. 2. No definite bowel wall thickening or obstruction. 3. Colonic diverticulosis. No evidence for acute diverticulitis. 4. Additional findings as described above. ACT 112: Negative or not required by law. Electronically signed by: Petros Schulz M.D. 09/27/2022 10:39 AM 09/27/22 09:40 CT abd pelvis wo con Urgent Hospital Course (1) GI bleed: Pt is a 82 yo female with PMH of HTN, HLD, afib s/p ablation, and DM2 here for SOB secondary to acute blood loss anemia from GI bleed. GI bleed - upper vs. lower; pt endorses frequent NSAID and aspirin use at home- pt has never had colonoscopy - s/p 1 unit pRBCs from outside hospital; transfusion consent obtained - Hgb stable upon arrival at 9.2; no further bleeding; the patient is reporting some black stool. Hemoglobin has been staying relatively stable. Between 7.57.9 since 09/25 AM. - EGD showed erosive gastropathy w/o signs of bleeding - colonoscopy revealed large polyp of ascending colon w/o evidence of current bleeding, in addition to small, non-bleeding hemorrhoids - per GI; continue protonix 40 mg daily, outpatient referral to Dr. Bowers for resection of above polyp - Iron studies ordered on 09/27 showed low iron, low TIBC, low transferrin percentage, and a normal ferritin. Most likely representing acute phase reactants. May represent anemia of chronic disease. We will start on iron supplements daily. Sent home with iron supplementation. - Given patient's continue right upper quadrant abdominal pain, CT abdomen pelvis without contrast was ordered. Showed left side nephrolithiasis without ureteral stones or hydronephrosis. Diverticulosis without diverticulitis and no signs of obstruction or bowel wall thickening. -Hemoglobin of 8.2 at time of discharge. Should have a repeat -CBC in 1 week after discharge. Follow-up with PCP within 1 week. -Referral sent to , for patient to have resection of her polyp. Skin abscess of left buttock - improving since yesterday, still draining purulent material but again decreasing in size - d/c bactrim d/t MSSA on wound culture; start cephalexin 500 mg QID. Last dose will be on 10/01. Sent home on cephalexin 500 mg 4 times a day. HTN, HLD - continue losartan, simvastatin, metoprolol - continue to hold ASA in setting of GI bleed DM2 - hold home metformin - given low dose home medication, hold off insulin for now Deconditioning -PT OT recommend home health services for patient. Home health was set up for patient. (2) Anemia: (3) HTN (hypertension): (4) HLD (hyperlipidemia): (5) DM2 (diabetes mellitus, type 2): (6) S/P ablation of atrial fibrillation: (7) Abscess: (8) Physical deconditioning: Total Time Total Time Spent Total Time Spent (In Minutes): Please refer to attendings attestation. Discharge Plan Discharge Items Patient Disposition: Home - Home Health Services Reason For Visit: GI BLEED Discharge Diagnosis: GI bleed Activity: Per Instructions section Non-emergency contact: Primary Care Provider Call non-emergency contact if: you have any medication questions, your pain is unusual for you and your temperature is above 101.5 Follow-up/Referrals: Elia Bowers MD [Physician] - (For resection of polyp) Rina Garcia M.D. [Primary Care Provider] - Diet: Regular Addtl Attending Provider Instructions: You were admitted to the hospital for GI bleed. A discharge summary will be sent to your primary care physician to ensure continuity of care. Please bring this discharge summary with you to your next office appointment so that your provider can review it at that time. Follow-up appointments: * Make a follow-up appointment with your PCP within the next week. It is very important that you follow up with them shortly after discharge from the hospital. * We have requested that you follow-up with Dr. Bowers gastroenterology to have resection of your polyp. If you do not hear from their office please give them a call at [phone]. * Keep all your follow-up appointments as already scheduled. If you cannot make an appointment, notify your provider. Medications: Your medication list has been reviewed and reconciled upon discharge to ensure accuracy and continuity of care. An updated list of all your medications is included with your hospital discharge paperwork. Please review this list closely, and make note of any changes. * We sent a medication called cephalexin 500 mg to your pharmacy. Please take cephalexin 4 times a day for the next 3-1/2 days. * We sent a medication called iron to your pharmacy. Please take iron supplement once a day. * If you have any issues filling these prescriptions, please call [phone] and ask to leave a message for Dr. Silva. * Take your medications as instructed; do not skip a dose of your medicines. Make sure all of your doctors know every medicine you are taking (including [id number] medicines, vitamins, and supplements). Call your primary care provider before taking any new medicines (including over- the-counter medicines, vitamins, and supplements), because some of these may interact with your current medications, or may make your symptoms worse. Tell your primary care provider if you cannot afford your medications. CONTACT YOUR PRIMARY CARE PROVIDER if you experience any of the following: * Worsening of symptoms * Fever, chills, or fatigue * Difficulty following your treatment plan, or difficulty taking medications CALL 911 OR GO TO THE EMERGENCY DEPARTMENT if you experience any of the following: * Sudden, severe abdominal pain or nausea/vomiting * Severe chest pain, or chest pain that radiates (moves) to your jaw or arm * Sudden, severe shortness of breath or difficulty breathing Thank you for allowing us to participate in your care. Pending Studies at Discharge: No Stand-Alone Forms: My [facility] [email or web address], Smoking Cessation Medications and DC Order Prescriptions: New cephalexin 500 mg Capsule 500 mg PO QID Qty: 14 0RF ferrous sulfate 325 mg (65 mg iron) Tablet,Delayed Release (Dr/Ec) 325 mg PO QAM 30 Days Qty: 30 0RF Continued losartan 50 mg Tablet 50 mg PO DAILY metformin 500 mg Tablet 500 mg BID metoprolol succinate 50 mg Tablet Extended Release 24 Hr 50 mg PO DAILY simvastatin 20 mg Tablet 20 mg PO DAILY vitamin A-vitamin C-vit E-min Tablet 1 tab PO DAILY aspirin 81 mg Capsule 81 mg QAM Discharge Orders: Discharge Order (Routine); Ordered 09/28/22 Ordered By: Oscar Zelaya/Other Patient Handouts: GI Bleeding Causes and Tests, Anatomy of the Digestive System, Abscess Drainage Admission Data Admit Date/Time: 09/23/22 22:37 Attending Provider: Mary Anne Delaney Admit Provider: Priyanka Cummins Primary Care Provider: Rina Garcia Other Providers: Tod Wang ; Behzad Aceves ; [facility] Other Interventions: Discharge Summary Assessment (RN) Last Done: 09/28/22 13:26 Supervising Physician Co-Signing Physician Notes I personally examined the patient and verified all ward points of history and exam, discussed case, and agree with decision making and plan documented by Dr. Silva. Patient evaluated by PT and was recommended home with home health, she will be staying with her daughter in [place]. Patient will be scheduled with surgeon for resection of colonic polyp identified on colonoscopy during admission. She has not had additional BRBPR and hemoglobin is slowly improving. Patient recommended to follow-up at [facility] Dayana Bustamante as her PCP is 2 hours away. She will need repeat CBC. She expressed understanding. Resident Activity Tracking Resident Involvement: Resident Care Provided Care Provided: Adult Hospital Medicine
[2022-09-28 07:09] LABS: Basophils # (auto) 0.03 K/uL (0-0.2); Basophils % (auto) 0.5 %; Eosinophils # (auto) 0.29 K/uL (0-0.50); Eosinophils % (auto) 5.1 %; Hematocrit (blood only) 24.3 % (37.0-47.0); Hemoglobin 8.2 g/dl (12.0-16.0); Immature Granulocytes # (auto) 0.02 K/uL (0.01-0.20); Immature Granulocytes % (auto) 0.4 %; Lymphocytes # (auto) 1.97 K/uL (1.2-3.4); Lymphocytes % (auto) 34.9 %; Mean Corpuscular Hemoglobin 30.1 pg (25.0-34.0); Mean Corpuscular Hgb Conc 33.7 g/dL (32.0-36.0); Mean Corpuscular Volume 89.3 fL (80.0-100.0); Mean Platelet Volume 9.3 fL (9.4-12.4); Monocytes # (auto) 0.61 K/uL (0.11-0.59); Monocytes % (auto) 10.8 %; Neutrophils # (auto) 2.72 K/uL (1.40-6.50); Neutrophils % (auto) 48.3 %; Platelet Count 280 K/uL (130-400); RDW Coefficient of Variation 14.8 % (11.5-14.5); RDW Standard Deviation 47.6 fL (36.4-46.3); Red Blood Count 2.72 M/uL (4.20-5.40); White Blood Count 5.64 K/ul (4.8-10.8)
[2022-09-28 07:30] LABS: Albumin Globulin Ratio 1.3 (0.9-2); Albumin Level 3.5 gm/dl (3.4-5.0); BUN Creatinine Ratio 15.7 (10-20); Bilirubin,Total 0.5 mg/dl (0.2-1.0); Creatinine Clr Calc Pharmacy 35.9 ml/min; Est GFR (Non-African American) 47.4 ml/min; Globulin 2.7 gm/dl (2.5-4.0); Potassium 4.5 mmol/L (3.5-5.1); Total Protein 6.2 gm/dl (6.0-8.3)
[2022-09-28] MEDS: SIMVASTATIN 20 MG TAB PO SCH (08:21)
[2022-09-28] MEDS: LOSARTAN POTASSIUM 50 MG TAB PO SCH (08:21)
[2022-09-28] MEDS: PANTOprazole 40 MG in SYRINGE 0 ML IV SCH (08:21)
[2022-09-28] MEDS: cephALEXin 500 MG CAP PO SCH ×2 (08:21→13:09)
[2022-09-28] MEDS: METOPROLOL SUCC 50MG EXT REL TAB PO SCH (08:22)
[2022-09-28] MEDS ORDERED: FERROUS SULFATE 325 MG TAB PO SCH (09:00)
== END 2022-09-28 14:35 | disposition home health service (06) | DRG 378 ==
LOC: SUATTDRO 22:37 → 2N 22:37 → 2S 09-24 03:08